=== PATIENT | female | born 1930 | race Caucasian/White ===

== ENCOUNTER → 2016-12-04 | Outpatient (CLI) | payer MEDICARE, OTHER ==
[2016-12-04 10:58] LABS: MEAN CORPUSCULAR HEMOGLOBIN 29.9 PG (26.0-34.0); MEAN CORPUSCULAR HGB CONC 34.1 g/dL (31.0-37.0); MEAN PLATELET VOLUME 9.5 FL (6.0-9.5); WHITE BLOOD COUNT 10.58 10^3uL (4.0-11.0)
[2016-12-04 11:33] LABS: ALBUMIN 4.2 g/dL (3.4-5.0); ANION GAP 20.4 MEQ/L (3-15); PHOSPHORUS 5.1 mg/dL (2.4-4.9)
== END ==
LOC: LAB 10:42
PROVIDERS: ATTEND Internal Medicine Nephrology
DX: N18.5 Chronic kidney disease, stage 5 (principal)
CPT/HCPCS: 36415; 80069; 85027

== ENCOUNTER → 2017-01-01 | Outpatient (CLI) | payer MEDICARE, OTHER ==
[2017-01-01 09:19] LABS: BASOPHILS % (AUTO) 0 % (0-2); EOSINOPHILS # (AUTO) 0.3 10^3uL; EOSINOPHILS % (AUTO) 5 % (0-4); LYMPHOCYTES # (AUTO) 0.9 X10^3; MEAN CORPUSCULAR HEMOGLOBIN 29.4 PG (26.0-34.0); MEAN CORPUSCULAR HGB CONC 32.6 g/dL (31.0-37.0); MEAN CORPUSCULAR VOLUME 90 FL (80-100); MEAN PLATELET VOLUME 9.1 FL (6.0-9.5); MONOCYTES # (AUTO) 0.6 X10^3; MONOCYTES % (AUTO) 9 % (3-11); NEUTROPHILS # (AUTO) 4.5 X10^3; NEUTROPHILS % (AUTO) 72 % (51-67); PLATELET COUNT 356 10^3uL (150-450); WHITE BLOOD COUNT 6.32 10^3uL (4.0-11.0)
[2017-01-01 09:49] LABS: ALBUMIN 3.9 g/dL (3.4-5.0); ANION GAP 14.2 MEQ/L (3-15); CALCULATED IONIZED CALCIUM 4.5 mg/dL (3.8-4.6); TOTAL PROTEIN 6.7 g/dL (6.4-8.5)
== END ==
LOC: LAB 09:06
PROVIDERS: ATTEND Internal Medicine
DX: E78.4 Other hyperlipidemia (principal); I10 Essential (primary) hypertension; N18.4 Chronic kidney disease, stage 4 (severe); E05.30 Thyrotoxicosis from ectopic thyroid tissue without thyrotoxic crisis or storm
CPT/HCPCS: 36415; 80053; 80061; 84443; 85025